=== PATIENT | male | born 1985 | race Caucasian/White ===

== ENCOUNTER 2016-10-15 09:30 | Emergency (ER) | payer OTHER ==
[~2016-10-15] VITALS: Ht 177.8 cm; Wt 93.0 kg
--- NOTE | 2016-10-15 09:51 | NUR ---
DR COLLINS AT THE BEDSIDE FOR EVAL AND EXAM.
[2016-10-15] MEDS: LIDOCAINE HCL 1% 20 ML VIAL IJ ONE (10:05)
[2016-10-15] MEDS: HYDROCODONE/APAP 5-325MG TABLET PO ONE (10:38)
[2016-10-15 10:43] VITALS: BP 112/70
--- NOTE | 2016-10-15 10:43 | NUR ---
Patient discharged to home in stable conditon. Written and verbal after care instructions given. Patient verbalizes understanding of instructions.
[2016-10-15] MEDS ORDERED: HYDROCODONE/APAP 5-325MG TABLET ONE (10:46)
== END 2016-10-15 10:44 | disposition home or self-care (01) ==
LOC: ER 09:33
DX: L60.0 Ingrowing nail (principal)
CPT/HCPCS: A4663; J3490

== ENCOUNTER 2016-10-18 17:40 | Emergency (ER) | payer OTHER ==
[~2016-10-18] VITALS: Ht 177.8 cm; Wt 93.0 kg
== END 2016-10-18 18:00 | disposition home or self-care (01) ==
LOC: ER 17:42
DX: L60.0 Ingrowing nail (principal)
CPT/HCPCS: A4663

== ENCOUNTER 2017-06-17 09:11 | Emergency (ER) | payer SELFPAY ==
[~2017-06-17] VITALS: Ht 177.8 cm; Wt 99.8 kg
[2017-06-17] MEDS ORDERED: TETRACAINE HCL 0.5% OPHT DROP 2 ML BOTTLE OP ONE (09:45)
[2017-06-17] MEDS ORDERED: FLUORESCEIN SODIUM 1 MG STRIP OP ONE (09:45)
--- NOTE | 2017-06-17 09:47 | NUR ---
Patient discharged to home in stable conditon. Written and verbal after care instructions given. Patient verbalizes understanding of instructions.
[2017-06-17] MEDS ORDERED: TETRACAINE HCL 0.5% OPHT DROP 2 ML BOTTLE ONE (09:56)
[2017-06-17] MEDS ORDERED: FLUORESCEIN SODIUM 1 MG STRIP ONE (09:57)
== END 2017-06-17 09:48 | disposition home or self-care (01) ==
LOC: ER 09:11
DX: T15.11XA Foreign body in conjunctival sac, right eye, initial encounter (principal); X58.XXXA Exposure to other specified factors, initial encounter; Y93.89 Activity, other specified; Y92.413 State road as the place of occurrence of the external cause; Y99.8 Other external cause status
CPT/HCPCS: 65205; 99284; A4663

== ENCOUNTER 2023-07-29 16:28 | Emergency (ER) | payer OTHER ==
[~2023-07-29] VITALS: Ht 180.3 cm; Wt 103.0 kg
[2023-07-29 18:03] LABS: *BILIRUBIN,URIN NEGATIVE (NEGATIVE); *BLOOD, URINE NEGATIVE (NEGATIVE); *CLARITY,URINE CLEAR (CLEAR); *COLOR,URINE YELLOW (YELLOW); *KETONES,URINE NEGATIVE (NEGATIVE); *PROTEIN,URINE NEGATIVE (NEGATIVE); *UROBILINOGEN,URINE 0.2 E.U./dl (NORMAL); LEUKOCYTE ESTERASE ,URINE NEGATIVE (NEGATIVE); NITRITE, URINE NEGATIVE (NEGATIVE); UGLUCOSE NEGATIVE (NEGATIVE)
[2023-07-29] MEDS ORDERED: TRAMADOL HCL 50 MG TABLET PO ONE (19:15)
[2023-07-29] MEDS ORDERED: TRAM50TA PO (19:23)
[2023-07-29] MEDS ORDERED: TRAMADOL HCL 50 MG TABLET ONE (19:29)
[2023-07-29 19:36] VITALS: BP 111/80; TEMP 98; O2SAT 99
== END 2023-07-29 19:37 | disposition home or self-care (01) ==
LOC: ER 16:31
DX: M54.50 Low back pain, unspecified (principal); Z79.899 Other long term (current) drug therapy; Z88.1 Allergy status to other antibiotic agents
CPT/HCPCS: 72131; A4606; A4663

== ENCOUNTER 2025-05-30 06:51 | Emergency (ER) | payer BC, OTHER ==
[~2025-05-30] VITALS: Ht 180.3 cm; Wt 104.3 kg
[~2025-05-30 06:51] MED LIST: TRAM50TA PO
[2025-05-30 07:01] VITALS: BP 137/93
[2025-05-30 08:02] VITALS: BP 129/88; O2SAT 99
== END 2025-05-30 08:24 | disposition home or self-care (01) ==
LOC: ER 07:08
DX: M94.0 Chondrocostal junction syndrome [Tietze] (principal); E88.810 Metabolic syndrome; Z88.7 Allergy status to serum and vaccine
CPT/HCPCS: 71101; A4606; A4663